=== PATIENT | female | born 1970 | race Caucasian/White ===

== ENCOUNTER 2019-04-12 16:40 | Emergency (ER) | payer OTHER ==
[2019-04-12 16:58] VITALS: BP 114/72; PULSE 73; TEMP 98.6; BMI 35.5
--- NOTE | 2019-04-12 16:59 | PDOC ---
Rapid Medical Evaluation Time Seen by Provider: 04/12/19 16:55 Medical Evaluation: 04/12/19 16:56 Pt c/o: dizziness upon awakening this am, felt as if room is spinning, vomiting x 3 , headache rt side, denies fever, Pt on brief exam: vss, no abd tenderness pt ordered for: orthostatic vs, labs, urine Pt to proceed to the ED Discharge Disposition - Diagnosis Dizziness, Nausea and vomiting, Diarrhea - Discharge Dispostion Disposition: HOME Condition at time of disposition: Stable - Prescriptions Prescriptions: Ondansetron [Zofran *Odt*] 4 mg SL TID #21 od.tablet MDD 3 - Referrals Referrals: ON STAFF,NOT [Primary Care Provider] - - Patient Instructions Printed Discharge Instructions: DI for Viral Gastroenteritis -- Adult Additional Instructions: please roll picker your medications at your pharmacy Keep hydrated rest Return for worsening symptoms - Post Discharge Activity Work/School Note: Back to Work
[2019-04-12] MEDS ORDERED: MECLIZINE HCL 25 MG TABLET (FP) PO ONE (17:00)
[2019-04-12] MEDS ORDERED: ONDANSETRON 4 MG/2 ML VIAL IVPUSH ONE (17:00)
[2019-04-12] MEDS ORDERED: MECLIZINE HCL 25 MG TABLET (FP) ONE (17:52)
[2019-04-12] MEDS ORDERED: ONDANSETRON 4 MG/2 ML VIAL ONE (17:52)
[2019-04-12 17:58] LABS: BASO % 0.4 % (0-2.0); EOS % 1.4 % (0-4.5); HEMATOCRIT 40.4 % (32.4-45.2); HEMOGLOBIN 13.3 GM/dL (10.7-15.3); LYMPH % 12.7 % (8-40); MCH 29.1 pg (25.7-33.7); MEAN PLT VOLUME 9.3 fl (7.5-11.1); MONO % 6.4 % (3.8-10.2); NEUT % 79.1 % (42.8-82.8); PLATELET COUNT 215 K/MM3 (134-434); RBC 4.59 M/mm3 (3.60-5.2); RDW 13.9 % (11.6-15.6); WHITE BLOOD COUNT 11.7 K/mm3 (4.0-10.0)
[2019-04-12 18:29] LABS: ALBUMIN 3.9 g/dl (3.4-5.0); BILIRUBIN,TOTAL 0.3 mg/dL (0.2-1); BLOOD UREA NITROGEN 17.3 mg/dL (7-18); CALCIUM 9.3 mg/dL (8.5-10.1); CREATININE 0.7 mg/dL (0.55-1.3); TOT PROT 7.4 g/dl (6.4-8.2); URINE APPEARANCE CLEAR; URINE BILIRUBIN NEGATIVE (NEGATIVE); URINE COLOR YELLOW; URINE GLUCOSE (UA) NEGATIVE (NEGATIVE); URINE KETONE NEGATIVE (NEGATIVE); URINE LEUK ESTERASE NEGATIVE (NEGATIVE); URINE NITRITE NEGATIVE (NEGATIVE); URINE PROTEIN NEGATIVE (NEGATIVE); URINE UROBILINOGEN 0.2 mg/dL (0.2-1.0)
--- NOTE | 2019-04-12 19:54 | PDOC ---
Documentation entered by Radha Ohara SCRIBE, acting as scribe for Marie Hensley MD. Marie Hensley MD: This documentation has been prepared by the Lev dumas Xhesika, SCRIBE, under my direction and personally reviewed by me in its entirety. I confirm that the documentation accurately reflects all work, treatment, procedures, and medical decision making performed by me. History of Present Illness - General Chief Complaint: Vomiting/Diarrhea Stated Complaint: SENT BY PCP/ABD PAIN Time Seen by Provider: 04/12/19 16:55 History Source: Patient Exam Limitations: No Limitations - History of Present Illness Initial Comments: 04/12/19 18:34 The patient is a 49 year old female with a significant PMH of lupus with joint pain who presents to the emergency department for nausea, 3 episodes of vomiting , and 4 episodes of nbnb diarrhea today. Pt reports associated dizziness this morning described as room spinning. 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 The patient denies chest pain, shortness of breath, headache. Denies fever, chills, cough, and constipation. Denies dysuria, frequency, urgency and hematuria. Allergies: NKDA Past History - Past Medical History Allergies/Adverse Reactions: Allergies Allergy/AdvReac Type Severity Reaction Status Date / Time No Known Allergies Allergy Verified 04/12/19 16:58 Home Medications: Ambulatory Orders Ondansetron [Zofran *Odt*] 4 mg SL TID #21 od.tablet MDD 3 04/12/19 COPD: No Other medical history: lupus - Immunization History Immunization Up to Date: No - Psycho Social/Smoking Cessation Hx Smoking History: Never smoked Have you smoked in the past 12 months: No Information on smoking cessation initiated: No Hx Alcohol Use: No Drug/Substance Use Hx: No Review of Systems - Review of Systems Able to Perform ROS?: Yes Comments:: 04/12/19 18:35 GENERAL/CONSTITUTIONAL: No fever or chills. No weakness. HEAD, EYES, EARS, NOSE AND THROAT: No change in vision. No ear pain or discharge. No sore throat. CARDIOVASCULAR: No chest pain or shortness of breath. RESPIRATORY: No cough, wheezing, or hemoptysis. GASTROINTESTINAL: +nausea, vomiting, diarrhea. No constipation. GENITOURINARY: No dysuria, frequency, or change in urination. MUSCULOSKELETAL: No joint or muscle swelling or pain. No neck or back pain. SKIN: No rash NEUROLOGIC: +dizziness. No headache, vertigo, loss of consciousness, or change in strength/sensation. ENDOCRINE: No increased thirst. No abnormal weight change. HEMATOLOGIC/LYMPHATIC: No anemia, easy bleeding, or history of blood clots. ALLERGIC/IMMUNOLOGIC: No hives or skin allergy. *Physical Exam - Vital Signs Last Vital Signs Temp Pulse Resp BP Pulse Ox 98.6 F 73 18 114/72 99 04/12/19 16:56 04/12/19 16:56 04/12/19 16:56 04/12/19 16:56 04/12/19 16:56 - Physical Exam 04/12/19 18:36 GENERAL: Awake, alert, and fully oriented, in no acute distress HEAD: No signs of trauma EYES: PERRLA, EOMI, sclera anicteric, conjunctiva clear ENT: Auricles normal inspection, hearing grossly normal, nares patent, oropharynx clear without exudates. Moist mucosa NECK: Normal ROM, supple, no lymphadenopathy, JVD, or masses LUNGS: Breath sounds equal, clear to auscultation bilaterally. No wheezes, and no crackles HEART: Regular rate and rhythm, normal S1 and S2, no murmurs, rubs or gallops ABDOMEN: + diffuse abdominal discomfort. Soft, normoactive bowel sounds. No guarding, no rebound. No masses EXTREMITIES: Normal range of motion, no edema. No clubbing or cyanosis. No cords, erythema, or tenderness NEUROLOGICAL: Cranial nerves II through XII grossly intact. SKIN: Warm, Dry, normal turgor, no rashes or lesions noted. ED Treatment Course - LABORATORY CBC & Chemistry Diagram: 04/12/19 17:31 04/12/19 17:31 - ADDITIONAL ORDERS Additional order review: 04/12/19 17:31 RBC 4.59 MCV 88.0 MCHC 33.0 RDW 13.9 MPV 9.3 Neutrophils % 79.1 Lymphocytes % 12.7 Monocytes % 6.4 Eosinophils % 1.4 Basophils % 0.4 - Medications Given in the ED: ED Medications Discontinued Medications Generic Name Dose Route Start Last Admin Trade Name Freq PRN Reason Stop Dose Admin Meclizine HCl 25 mg 04/12/19 17:00 04/12/19 17:57 Antivert - PO 04/12/19 17:01 25 mg ONCE ONE Administration Medical Decision Making - Medical Decision Making 04/12/19 19:53 49-year-old female who developed nausea vomiting and diarrhea today She is works as a home health aide She has no focal abdominal pain, she has no focal neuro deficits, no ataxia, motor strength 5 of 5 bilaterally, no slurred speech, Symptoms resolved with IV fluids and Zofran Impression nausea vomiting diarrhea, viral gastroenteritis Discharge - Discharge Information Problems reviewed: Yes Clinical Impression/Diagnosis: Dizziness Nausea and vomiting Qualifiers: Vomiting type: unspecified Vomiting Intractability: non-intractable Qualified Code(s): R11.2 - Nausea with vomiting, unspecified Diarrhea Qualifiers: Diarrhea type: unspecified type Qualified Code(s): R19.7 - Diarrhea, unspecified Condition: Stable Disposition: HOME - Admission No - Additional Discharge Information Prescriptions: Ondansetron [Zofran *Odt*] 4 mg SL TID #21 od.tablet MDD 3 - Follow up/Referral Referrals: ON STAFF,NOT [Primary Care Provider] - - Patient Discharge Instructions Patient Printed Discharge Instructions: DI for Viral Gastroenteritis -- Adult Additional Instructions: please tile picker your medications at your pharmacy Keep hydrated rest Return for worsening symptoms - Post Discharge Activity
--- NOTE | 2019-04-13 12:04 | EKG ---
Test Reason : Blood Pressure : / mmHG Vent. Rate : 064 BPM Atrial Rate : 064 BPM P-R Int : 124 ms QRS Dur : 082 ms QT Int : 374 ms P-R-T Axes : 047 040 037 degrees QTc Int : 385 ms NORMAL SINUS RHYTHM POSSIBLE LEFT ATRIAL ENLARGEMENT NONSPECIFIC T WAVE ABNORMALITY ABNORMAL ECG Confirmed by MD NICOLÁS, MILTON ([id number]) on 04/13/2019 12:04:07 PM Referred By: Confirmed By:MILTON MONZON MD
== END 2019-04-12 20:16 | disposition home or self-care (01) ==
LOC: JER 16:40
PROC: 3E033GC Introduction of Other Therapeutic Substance into Peripheral Vein, Percutaneous Approach (ICD-10-PCS; principal; 2019-04-12)
DX: A08.4 Viral intestinal infection, unspecified (principal); B97.89 Other viral agents as the cause of diseases classified elsewhere; Z87.39 Personal history of other diseases of the musculoskeletal system and connective tissue
CPT/HCPCS: 36415; 80053; 81003; 83690; 85025; 87086; 93005; 93010; 96374; 99282-25